=== PATIENT | male | born 1980 | race Caucasian/White ===

== ENCOUNTER 2020-02-12 13:40 | Emergency (ER) | payer OTHER, SELFPAY ==
[2020-02-12 13:58] VITALS: BP 145/88; PULSE 99; RESP 16; TEMP 36.8; O2SAT 99
--- NOTE | 2020-02-12 13:59 | ED.DENTAL ---
HPI - Dental/Oral General Chief complaint: Dental/Oral Stated complaint: tooth pain Time Seen by Provider: 02/12/20 14:01 Source: patient and RN notes reviewed History of Present Illness HPI Narrative: Patient is a 39-year-old male that presents the urgent care with complaints of left upper dental pain. Patient states that started approximately 3 days ago but he has had issues with this tooth in the past and is never followed up with a dentist. Patient states he has been using ibuprofen for the pain. Denies of any fever, chills, nausea, vomiting. No other acute complaints. No acute distress noted. Patient aware of the plan of care. Related Data Allergies Allergy/AdvReac Type Severity Reaction Status Date / Time No Known Allergies Allergy Unverified 11/21/15 20:26 Review of Systems Review of Systems: Narrative: CONSTITUTIONAL: Denies fever, chills, or sweats. EYES: Denies visual changes, redness, or discharge. ENT: Denies rhinorrhea, congestion, sore throat, or otalgia. reports of left upper dental pain CARDIOVASCULAR: Denies chest pain, palpitations, or edema. RESPIRATORY: Denies cough or dyspnea. GASTROINTESTINAL: Denies abdominal pain, nausea, vomiting, or diarrhea. GENITOURINARY: Denies dysuria or hematuria. SKIN: Denies rash or itching. MUSCULOSKELETAL: Denies back pain, joint pain, or myalgia. NEUROLOGIC: Denies headache, numbness, or weakness. All other systems reviewed are negative, except as documented in HPI. PMFSH Comments At the time of my signature, I reviewed and agree with the nursing past medical, surgical, social, and family history. There is no relevant family history pertinent to the patient complaint. Exam Narrative: Exam Narrative: GENERAL: This is a well-nourished, well-developed patient, in no apparent distress. HEAD: normocephalic, atraumatic. EYES: PERRL. Sclera clear/white. Vision is grossly intact. EARS: External ears normal NOSE: External nose normal with no obvious nasal discharge THROAT: Mucous membranes moist, posterior pharynx clear. DENTAL: Left upper second molar, tooth #15, with large dental carry and moderate erythema without any notable abscess NECK: Neck supple CARDIOVASCULAR: Regular rate and rhythm without murmurs, gallops, or rubs. RESPIRATORY: Clear to auscultation. Breath sounds equal bilaterally. No wheezes, rales, or rhonchi. SKIN: warm, intact with no suspicious lesions or rash, good texture and turgor. NEURO: awake, alert, and oriented to person, place and time. There were no obvious focal neurologic abnormalities. EXTREMITIES: No clubbing, cyanosis, or edema. Course Vital Signs Vital signs: Vital Signs Temperature 98.2 F 02/12/20 13:58 Pulse Rate 99 02/12/20 13:58 Respiratory Rate 16 02/12/20 13:58 Blood Pressure 145/88 H 02/12/20 13:58 Pulse Oximetry 99 02/12/20 13:58 Temperature 98.2 F 02/12/20 13:58 Pulse Rate 99 02/12/20 13:58 Respiratory Rate 16 02/12/20 13:58 Blood Pressure 145/88 H 02/12/20 13:58 Pulse Oximetry 99 02/12/20 13:58 Reviewed?patient is informed that they may have pre-hypertension or hypertension based on a blood pressure reading in the department. I recommend the patient call the primary care provider listed on their discharge instructions or a physician of their choice this week to arrange follow-up for further evaluation of possible pre-hypertension or hypertension. MDM - Dental/Oral MDM Narrative Medical decision making narrative: Advised the patient to complete antibiotic regimen as prescribed. Make sure to eat and drink with the medication. Avoid extreme hot and cold foods/drinks?they will cause increased irritation. May use [id number] Prevention mouthwash twice a day. [place] and floss twice a day. Patient will need to follow-up with a dentist for further dental evaluation and treatment. Follow-up within 1 week. Differential Diagnosis Differential diagnosis: Likely gingival abscess, dental caries, tootha
== END 2020-02-12 14:20 | disposition home or self-care (01) ==
PROVIDERS: Emergency Provider Nurse Practitioner Family
DX: K02.9 Dental caries, unspecified (principal); K04.7 Periapical abscess without sinus
CPT/HCPCS: 99203; G0463

== ENCOUNTER 2020-04-30 08:36 | Emergency (ER) | payer OTHER, SELFPAY ==
[2020-04-30 09:11] VITALS: BP 123/75; PULSE 59; RESP 16; TEMP 37; O2SAT 100
--- NOTE | 2020-04-30 09:40 | ED.EYEPROB ---
HPI - Eye Problem General Chief complaint: Eye Problems Stated complaint: eye problems Time Seen by Provider: 04/30/20 09:50 Source: patient and RN notes reviewed Mode of arrival: ambulatory Limitations: no limitations History of Present Illness HPI Narrative: 39-year-old male presents with concern for left eye pain, redness that started yesterday. Reports he is a contact lens wear, sleeps in his contact lenses, is not currently wearing a lens in the left eye. Denies any known trauma, scratch, foreign body to the left eye. Denies fever, vision changes, rhinorrhea, nasal congestion, headache. chief complaint: eye pain and eye redness Related Data Allergies Allergy/AdvReac Type Severity Reaction Status Date / Time No Known Allergies Allergy Unverified 11/21/15 20:26 Review of Systems Review of Systems: Narrative: CONSTITUTIONAL: Denies malaise, chills, sweats, or fever. EYES: Denies visual changes. Reports left eye redness, pain, watery discharge. ENT: Denies rhinorrhea, congestion, sinus pain, otalgia or sore throat. CARDIOVASCULAR: Denies chest pain, palpitations, or edema. RESPIRATORY: Denies cough or dyspnea. SKIN: Denies rash or itching. NEUROLOGIC: Denies headache. All systems reviewed & are unremarkable except as noted in HPI and below PMFSH Comments At time of signature, agree with nursing past medical, surgical, social and family history. There is no relevant family history pertinent to the presenting complaint Exam Narrative: Exam Narrative: GENERAL: Well-appearing, well-nourished, and in no acute distress. HEAD: Normocephalic, atraumatic. EYES: Right PERRLA, conjunctivae clear, sclera clear. EOMI. No nystagmus. Left sclera and conjunctive injected, watery discharge noted. No corneal abrasion or foreign bodies noted see Yen lamp exam note ENT: Nares clear. Mucous membranes moist. TM pearly rosales with sharp light reflex bilaterally; no tragal tenderness. NECK: Supple. CHEST: No respiratory distress. No bony deformities, no asymmetry. Speaks in full sentences. SKIN: Warm, dry, no rash. NEURO: Alert and oriented x3. PSYCH: Normal mood and affect Course Course Emergency Course: Patient is aware of diagnosis, understands and agrees to treatment plan. Anticipatory guidance given. Patient agrees to follow-up as directed and is aware of reasons to seek care at the emergency department. Portions of this record may have been created with voice recognition software Vital Signs Vital signs: Vital Signs Temperature 98.6 F 04/30/20 09:11 Pulse Rate 59 L 04/30/20 09:11 Respiratory Rate 16 04/30/20 09:11 Blood Pressure 123/75 04/30/20 09:11 Pulse Oximetry 100 04/30/20 09:11 Temperature 98.6 F 04/30/20 09:11 Pulse Rate 59 L 04/30/20 09:11 Respiratory Rate 16 04/30/20 09:11 Blood Pressure 123/75 04/30/20 09:11 Pulse Oximetry 100 04/30/20 09:11 Reviewed. Procedures Other Procedure Procedure 1: Other Procedure: Tetracaine 1 gtt instilled in left eye, fluorescein stain applied. No corneal abrasion or foreign bodies noted. Eye washed with NS 100 ml. No foreign bodies or Alex sign noted. MDM - Eye Problem MDM Narrative Medical decision making narrative: Consideration of the following conditions may be warranted for the presenting problem, they are not final diagnoses: Bacterial conjunctivitis, allergic conjunctivitis, viral conjunctivitis, foreign body, blepharitis, chalazion, hordeolum, corneal abrasion. Exam findings show no acute concerns or changes; patient is non-toxic appearing and is in no distress. Patient is appropriate for outpatient treatment and follow-up. Critical Care Time Critical Care Time Critical Care Time: No Discharge Plan Discharge Clinical Impression: Conjunctivitis Qualifiers: Conjunctivitis type: acute Acute conjunctivitis type: unspecified Laterality: left Qualified Code(s): H10.32 - Unspecified acute conjunctivitis, left eye Tere
== END 2020-04-30 10:13 | disposition home or self-care (01) ==
PROVIDERS: Emergency Provider Nurse Practitioner; PCP Family Medicine
DX: H10.32 Unspecified acute conjunctivitis, left eye (principal)
CPT/HCPCS: 99213; A9270; G0463

== ENCOUNTER 2023-01-29 07:23 | Outpatient (CLI) | payer OTHER, SELFPAY ==
--- NOTE | ~2023-01-29 | MR_ITS ---
MRI of the brain Clinical History: Headache Technique: Axial and sagittal T1-weighted images were acquired. These were followed by axial T2-weigh barrett, diffusion weighted, gradient, and FLAIR images. Findings: No abnormal signal seen in the brain parenchyma. No acute infarct, intracranial hemorrhage, or mass lesion. Ventricles and subarachnoid spaces are unremarkable. Orbits are unremarkable. There is right maxillar y sinus disease. There is probable mucosal thickening in the left sphenoid sinus. Remaining paranasal sinuses and mastoid air cells are clear. Major intracranial flow voids are intact. Sagittal midline structures are intact. IMPRESSION: No intracranial abnormality. Sinus disease, as above. Reviewed, dictated and finalized at location .
== END 2023-01-29 07:24 ==
LOC: MICIMG 07:25
PROVIDERS: PCP Family Medicine; Visit Provider Nurse Practitioner Family
DX: R51.9 Headache, unspecified (principal); J32.9 Chronic sinusitis, unspecified
CPT/HCPCS: 70551

== ENCOUNTER 2024-05-26 13:02 | Outpatient (CLI) | payer SELFPAY ==
--- NOTE | ~2024-05-26 | XR_ITS ---
XR elbow LT 2V Ordering provider: Jak Orantes, [employer] History: . pain in left elbow joint, POSTERIOR SWELLING . Comparison: None. FINDINGS: BONES: No acute fracture or dislocation. JOINT SPACES: Normal. SOFT TISSUES: Soft tissue swelling seen posteriorly. No definite joint effusion. IMPRESSION: No acute osseous abnormality left elbow. Reviewed, dictated and finalized at location A.
== END 2024-05-26 13:03 | disposition home or self-care (01) ==
PROVIDERS: PCP Family Medicine; Visit Provider Nurse Practitioner Family
DX: M25.522 Pain in left elbow (principal)
CPT/HCPCS: 73070

== ENCOUNTER 2024-09-29 17:03 | Emergency (ER) | payer SELFPAY ==
[2024-09-29 17:04] VITALS: BP 126/74; PULSE 79; RESP 18; TEMP 36.7; O2SAT 97
--- NOTE | 2024-09-29 17:10 | ED.EAR ---
HPI - Ear Problem General Chief complaint: Ear Stated complaint: right ear pain Time Seen by Provider: 09/29/24 17:09 Source: patient Mode of arrival: ambulatory Limitations: no limitations History of Present Illness HPI Narrative: This is a 44-year-old male that presents to the emergency department for right ear pain. Ongoing since yesterday. Reports he has had some recent congestion. Denies fevers or drainage. Related Data Allergies Allergy/AdvReac Type Severity Reaction Status Date / Time No Known Allergies Allergy Verified 09/29/24 17:09 Review of Systems Review of Systems: CONSTITUTIONAL: Denies fever ENT: Reports otalgia. All systems reviewed & are unremarkable except as noted in HPI and below PMFSH Past Medical History Medical History (Updated 09/29/24 @ 17:15 by Leigh Ann Puente PA-C) History of hypertension Social History Social History (Updated 09/29/24 @ 17:16 by Leigh Ann Puente PA-C) Substance use: never Exam Narrative: GENERAL: Well-appearing, well-nourished, and in no acute distress. HEAD: Normocephalic, atraumatic. EYES: EOMI. ENT: Left TM pearly rosales non-bulging. Right TM erythematous and bulging NECK: Supple. No adenopathy or masses. EXTREMITIES: Normal range of motion. No edema. SKIN: Warm, dry, no rash. NEURO: No focal deficits. Alert and oriented x3. PSYCH: Normal mood and affect Course Course Emergency Course: Patient agrees with plan of care Vital Signs Vital signs: Vital Signs Temperature 98.1 F 09/29/24 17:04 Pulse Rate 79 09/29/24 17:04 Respiratory Rate 18 09/29/24 17:04 Blood Pressure 126/74 09/29/24 17:04 Pulse Oximetry 97 09/29/24 17:04 Oxygen Delivery Room Air 09/29/24 17:04 Temperature 98.1 F 09/29/24 17:04 Pulse Rate 79 09/29/24 17:04 Respiratory Rate 18 09/29/24 17:04 Blood Pressure 126/74 09/29/24 17:04 Pulse Oximetry 97 09/29/24 17:04 Oxygen Delivery Room Air 09/29/24 17:04 Medical Decision Making MDM Narrative Medical decision making narrative: Patient presents the emergency department for right-sided otalgia. Exam consistent with otitis media. Patient will be started on Augmentin. Given warnings to return to the ER Differential Diagnosis Differential Diagnosis: Otitis media, otitis externa Vital Signs Vital Signs: Vital Signs Temperature 98.1 F 09/29/24 17:04 Pulse Rate 79 09/29/24 17:04 Respiratory Rate 18 09/29/24 17:04 Blood Pressure 126/74 09/29/24 17:04 Pulse Oximetry 97 09/29/24 17:04 Oxygen Delivery Room Air 09/29/24 17:04 Temperature 98.1 F 09/29/24 17:04 Pulse Rate 79 09/29/24 17:04 Respiratory Rate 18 09/29/24 17:04 Blood Pressure 126/74 09/29/24 17:04 Pulse Oximetry 97 09/29/24 17:04 Oxygen Delivery Room Air 09/29/24 17:04 Critical Care Time Critical Care Time Critical Care Time: No Discharge Plan Discharge Clinical Impression: Otitis media Qualifiers: Otitis media type: unspecified Chronicity: acute Qualified Code(s): H66.90 - Otitis media, unspecified, unspecified ear Patient Disposition: Home, Self-Care Condition: Stable Instructions: Antibiotic Form, Ear Infection (ED) Additional Instructions: Return to the emergency department for worsening symptoms, or any other concerns Remain well-hydrated, get plenty of rest. Take Tylenol or Motrin [id number] for pain as needed. Take oral antibiotics as prescribed Follow up with primary care doctor Patient Language: Citizen [place] Prescriptions: New amoxicillin-pot clavulanate 875-125 mg tablet 1 tablet PO Q12H 7 Days Qty: 14 0RF No Action polymyxin B sulf-trimethoprim [Polytrim] 10,000 unit- 1 mg/mL drops 1 drp EACH EYE Q4H 7 Days Qty: 10 0RF Rx Instructions: while awake; do not exceed 6 doses in 24 hours Follow-up/Referrals: UNKNOWN,DOCTOR [Primary Care Provider] -
== END 2024-09-29 17:32 | disposition home or self-care (01) ==
LOC: ANHED 17:28
PROVIDERS: Emergency Provider Physician Assistant
DX: H66.91 Otitis media, unspecified, right ear (principal); I10 Essential (primary) hypertension
CPT/HCPCS: 99283

== ENCOUNTER 2025-04-14 11:06 | Emergency (ER) | payer SELFPAY ==
--- NOTE | ~2025-04-14 | XR_ITS ---
EXAMINATION: XR finger 3rd LT min 2V DATE: 04/14/2025 11:45 INDICATION: Laceration to the left third digit TECHNIQUE: Dorsal palmar, lateral and 2 oblique views of the left third digit were obtained COMPARISON: None FINDINGS: Bone alignment is normal. No fracture. Joint spaces are normal. Mild soft tissue swelling about the t hird digit. Soft tissue gas or radiopaque foreign bodies. IMPRESSION: 1. No osseous abnormality or radiopaque foreign bodies. Reviewed, dictated and finalized at location A.
[2025-04-14 11:08] VITALS: BP 156/83; PULSE 77; RESP 20; TEMP 37; O2SAT 99
--- NOTE | 2025-04-14 11:29 | ED.WOUNDLAC ---
HPI - Wound/Laceration General Chief Complaint: Wound/Laceration Stated Complaint: left 3rd finger inj Time Seen by Provider: 04/14/25 11:08 Source: patient Mode of arrival: ambulatory Limitations: no limitations History of Present Illness HPI narrative: This is a 44 year old male that presents to the ER for laceration to the left 3rd finger. Reports he was trying to cut a bag with a blade and accidentally cut himself. Reports bleeding and pain to the area. Unsure of last tetanus vaccination. Related Data Allergies Allergy/AdvReac Type Severity Reaction Status Date / Time No Known Allergies Allergy Verified 04/14/25 11:10 Review of Systems Review of Systems: All systems reviewed & are unremarkable except as noted in HPI and below PMFSH Past Medical History Medical History (Updated 04/14/25 @ 12:50 by Leigh Ann Puente PA-C) History of hypertension Social History Social History (Updated 09/29/24 @ 17:16 by Leigh Ann Puente PA-C) Substance use: never Exam Narrative: GENERAL: Well-appearing, well-nourished, and in no acute distress. HEAD: Normocephalic, atraumatic. EYES: EOMI. EXTREMITIES: Normal range of motion. No edema. Left third finger distal phalanx palmar surface with 3cm flap laceration SKIN: Warm, dry, no rash. NEURO: No focal deficits. Alert and oriented x3. PSYCH: Normal mood and affect Course Vital Signs Vital signs: Vital Signs Temperature 98.6 F 04/14/25 11:08 Pulse Rate 77 04/14/25 11:08 Respiratory Rate 20 04/14/25 11:08 Blood Pressure 156/83 H 04/14/25 11:08 Pulse Oximetry 99 04/14/25 11:08 Oxygen Delivery Room Air 04/14/25 11:08 Temperature 98.6 F 04/14/25 11:08 Pulse Rate 77 04/14/25 11:08 Respiratory Rate 20 04/14/25 11:08 Blood Pressure 156/83 H 04/14/25 11:08 Pulse Oximetry 99 04/14/25 11:08 Oxygen Delivery Room Air 04/14/25 11:08 Procedures Laceration Laceration 1: Date: 04/14/25 Time: 12:46 Site: hand Side (If applicable): left Size (cm): 3 Description: flap Depth: simple, single layer Local Anesthetic: lidocaine 1% Amount of anesthesia used (mL): 2 Pre-repair: wound explored and irrigated ====== Skin Level ====== Skin layer closed with: nylon Size (cm): 4-0 Number of sutures: 8 Technique: simple, interrupted ====== Subcutaneous Layer ====== ====== Muscle Layer ====== ====== Tendon Layer ====== MDM - Wound/Laceration MDM Narrative Medical decision making narrative: Patient presents emergency department for laceration to his finger. Updated on tetanus vaccination. Wound irrigated and closed with sutures. Educated on further wound care. X-ray without acute osseous abnormality or evidence of foreign body. He is to follow up with primary provider. He was given warnings to return to the ER Differential Diagnosis Differential diagnosis: Likely laceration and abrasion Imaging Data Radiologist's impression: ITS Impressions Finger X-Ray 04/14/25 12:00 IMPRESSION: 1. No osseous abnormality or radiopaque foreign bodies. Critical Care Time Critical Care Time Critical Care Time: No Discharge Plan Discharge Clinical Impression: Laceration Patient Disposition: Home Condition: Stable Instructions: Antibiotic Form, Care For Your Stitches (ED), Laceration (ED) Additional Instructions: Return to the emergency department if you experience fever, redness or swelling of your wound, abnormal drainage from your wound, or any other symptoms that are concerning to you. Apply antibiotic ointment daily. Do not soak the wound. Clean with mild soap and water daily. Take oral antibiotic as prescribed Follow-up with your primary care doctor for suture removal in 10-14 days. Patient Language: [place] Prescriptions: New cephalexin 500 mg capsule 500 mg PO Q8H 5 Days Qty: 15 0RF No Action polymyxin B sulf-trimethoprim [Polytrim] 10,000 unit- 1 mg/mL drops 1 drp EACH EYE Q4H 7 Days Qty: 10 0RF Rx Instructions: while awake; do not exceed 6 doses in 24 hours amoxicillin-pot clavulanate 875-125 mg tablet 1 tablet PO Q12H 7 Days Qty: 14 0RF Follow-up/Referrals: Randy Perez MD [Physician] - UNKNOWN,DOCTOR [Primary Care Provider] -
[2025-04-14] MEDS: TETANUS,DIPHTHERIA,AC PERTUSSIS ADULT (0.5 ML) BOOSTRIX IM (11:38)
== END 2025-04-14 13:12 | disposition home or self-care (01) ==
PROVIDERS: Emergency Provider Physician Assistant
DX: S61.213A Laceration without foreign body of left middle finger without damage to nail, initial encounter (principal); W26.0XXA Contact with knife, initial encounter; I10 Essential (primary) hypertension; Z23 Encounter for immunization
CPT/HCPCS: 12002; 73140; 90471; 90715; 99283; J2003